=== PATIENT | male | born 1955 | race Hispanic/Latino ===

== ENCOUNTER 2021-05-30 03:04 | Inpatient (IN) | payer OTHER, MEDICARE ==
[2021-05-30] VITALS (10 sets, daily range): BP systolic 128–163; BP diastolic 73–99
[~2021-05-30] VITALS: Ht 175.3 cm; Wt 89.3 kg
[2021-05-30 04:04] LABS: BASOPHILS % (AUTO) 0.8 % (0.0-5.0); EOSINOPHILS % (AUTO) 4.5 % (0.0-8.0); HEMATOCRIT 41.6 % (42-54); LYMPHOCYTES % (AUTO) 35.8 % (21.0-51.0); MEAN CORPUSCULAR HEMOGLOBIN 32.6 pg (27.0-33.0); MEAN CORPUSCULAR HGB CONC 35.1 g/dL (32.0-36.0); MEAN CORPUSCULAR VOLUME 92.9 fL (79-99); MONOCYTES % (AUTO) 8.1 % (3.0-13.0); NEUTROPHILS % (AUTO) 50.7 % (40.0-77.0); PLATELET COUNT (AUTO) 207 K/uL (130-400); RED BLOOD CELL COUNT(AUTO) 4.48 MIL/uL (4.50-6.20); WHITE BLOOD COUNT (AUTO) 7.4 K/uL (4.8-10.8)
[2021-05-30 04:16] LABS: CREATININE 0.9 mg/dL (0.5-1.5); POTASSIUM 4.2 mmol/L (3.5-5.1)
[2021-05-30 04:22] LABS: ALBUMIN 3.7 g/dL (3.5-5.0); BILIRUBIN,TOTAL 1.1 mg/dL (0.2-1.0); MAGNESIUM 2.1 mg/dL (1.80-2.40); TOTAL PROTEIN, SERUM 7.8 g/dL (6.0-8.3)
[2021-05-30] MEDS ORDERED: 0.9%NACL 1000ML 1,000 ML IV ONE (05:00)
[2021-05-30] MEDS ORDERED: ACETAMINOPHEN 325 MG TAB PO PRN ×2 (10:30)
[2021-05-30] MEDS ORDERED: ONDANSETRON 4MG INJ IV PRN (10:30)
[2021-05-30 10:31] LABS: CHOLESTEROL 206 mg/dL (<200); HDL CHOLESTEROL 54 mg/dL (29-71); LDL DIRECT 135 mg/dL (0-99); TRIGLYCERIDES 96 mg/dL (30-200)
[2021-05-30 10:43] LABS: HEMOGLOBIN A1C 5.8 % (4.0-6.0)
[2021-05-30] MEDS ORDERED: LEVETIRACETAM 1,000 MG in 0.9%NACL 100ML 100 ML IV ONE (11:00)
[2021-05-30] MEDS: 0.9%NACL 1000ML 1,000 ML IV SCH (11:25)
[2021-05-30] MEDS ORDERED: GADOTERATE MEGLUMINE 10 MMOL/20 ML VIAL IV ONE (11:27)
[2021-05-30] MEDS: THIAMINE HCL 100 MG/ML 2ML VIAL IV SCH (12:04)
[2021-05-30] MEDS: FOLIC ACID 1 MG TABLET PO SCH (12:05)
[2021-05-30 13:33] LABS: ALCOHOL, BLOOD < 3 mg/dL (0-10); CREATINE KINASE, TOTAL 123 U/L (21-232)
[2021-05-30] MEDS ORDERED: LORAZEPAM 2 MG/ML 1 ML VIAL IVP PRN (15:00)
[2021-05-30] MEDS ORDERED: PHARMACY COMMUNICATION MISC PRN (15:00)
[2021-05-30] MEDS ORDERED: DiphenhydrAMINE HCL 50 MG/ML VIAL IV ONE (19:30)
[2021-05-30] MEDS ORDERED: IOHEXOL-350 75 ML VIAL IV ONE (20:15)
[2021-05-30] MEDS: CHLORDIAZEPOXIDE HCL 25 MG CAP PO PRN (21:32)
[2021-05-30] MEDS: LEVETIRACETAM 250 MG TABLET PO SCH (21:32)
[2021-05-30] MEDS: FAMOTIDINE 20MG VIAL IV SCH (21:33)
[2021-05-31] VITALS: BP 145/73
[2021-05-31 04:00] VITALS: BP 147/76
[2021-05-31 04:37] VITALS: BP 142/61
[2021-05-31 05:22] LABS: BASOPHILS % (AUTO) 0.9 % (0.0-5.0); EOSINOPHILS % (AUTO) 5.1 % (0.0-8.0); HEMATOCRIT 40.6 % (42-54); LYMPHOCYTES % (AUTO) 31.2 % (21.0-51.0); MEAN CORPUSCULAR HEMOGLOBIN 32.6 pg (27.0-33.0); MEAN CORPUSCULAR HGB CONC 34.5 g/dL (32.0-36.0); MEAN CORPUSCULAR VOLUME 94.4 fL (79-99); MONOCYTES % (AUTO) 8.4 % (3.0-13.0); PLATELET COUNT (AUTO) 193 K/uL (130-400); RED CELL DISTRIBUTION WIDTH 12.9 % (11.0-15.5); WHITE BLOOD COUNT (AUTO) 7.6 K/uL (4.8-10.8)
[2021-05-31 05:42] LABS: ALBUMIN 3.6 g/dL (3.5-5.0); BILIRUBIN,TOTAL 1.2 mg/dL (0.2-1.0); CREATININE 0.9 mg/dL (0.5-1.5); POTASSIUM 4.4 mmol/L (3.5-5.1); TOTAL PROTEIN, SERUM 7.3 g/dL (6.0-8.3)
[2021-05-31] MEDS: 0.9%NACL 1000ML 1,000 ML IV SCH (06:30)
[2021-05-31 08:00] VITALS: BP 111/75
[2021-05-31] MEDS: FOLIC ACID 1 MG TABLET PO SCH (10:59)
[2021-05-31] MEDS: LEVETIRACETAM 250 MG TABLET PO SCH ×2 (10:59→22:14)
[2021-05-31] MEDS: FAMOTIDINE 20MG VIAL IV SCH ×2 (10:59→22:14)
[2021-05-31] MEDS: THIAMINE HCL 100 MG/ML 2ML VIAL IV SCH (11:00)
[2021-05-31] MEDS: CHLORDIAZEPOXIDE HCL 25 MG CAP PO PRN ×2 (11:17→17:44)
[2021-05-31 12:00] VITALS: BP 122/71
[2021-05-31] MEDS ORDERED: CHLORDIAZEPOXIDE HCL 25 MG CAP PO ONE (15:00)
[2021-05-31 20:00] VITALS: BP 137/85
[2021-05-31] MEDS ORDERED: ATORVASTATIN 40 MG TABLET PO SCH (21:00)
[2021-06-01] VITALS: BP 137/98
[2021-06-01 04:00] VITALS: BP 102/59
[2021-06-01 08:00] VITALS: BP 98/60
[2021-06-01] MEDS: FAMOTIDINE 20MG VIAL IV SCH (09:00)
[2021-06-01] MEDS: THIAMINE HCL 100 MG/ML 2ML VIAL IV SCH (09:00)
[2021-06-01] MEDS ORDERED: LEVE750T10 PO (11:13)
[2021-06-01] MEDS ORDERED: FOLI1 PO (11:13)
[2021-06-01] MEDS ORDERED: ATOR40TA69 PO (11:13)
[2021-06-01] MEDS ORDERED: THIA100T91 PO (11:13)
[2021-06-01] MEDS: LEVETIRACETAM 250 MG TABLET PO SCH (11:33)
[2021-06-01] MEDS: FOLIC ACID 1 MG TABLET PO SCH (11:33)
[2021-06-01] MEDS: CHLORDIAZEPOXIDE HCL 25 MG CAP PO PRN (11:33)
[2021-06-01 15:12] LABS: HEPATITIS A ANTIBODY IGM Negative (Negative); HEPATITIS B CORE IGM Negative (Negative); HEPATITIS Bs ANTIGEN SCREEN P Negative (Negative)
[2021-06-02] MEDS ORDERED: THIAMINE HCL 100 MG TABLET PO SCH (09:00)
== END 2021-06-01 13:15 | disposition home or self-care (01) | DRG 101 ==
LOC: EDH 03:33 → EDHIP 10:11 → 3DH 15:49
PROVIDERS: ADMIT Internal Medicine; ATTEND Internal Medicine
DX: G40.89 Other seizures (principal); E11.9 Type 2 diabetes mellitus without complications; I10 Essential (primary) hypertension; S00.81XA Abrasion of other part of head, initial encounter; X58.XXXA Exposure to other specified factors, initial encounter; L98.499 Non-pressure chronic ulcer of skin of other sites with unspecified severity; Z60.2 Problems related to living alone; Z82.0 Family history of epilepsy and other diseases of the nervous system; Z86.73 Personal history of transient ischemic attack (TIA), and cerebral infarction without residual deficits; Z91.14 Patient's other noncompliance with medication regimen; Y93.89 Activity, other specified; Y92.89 Other specified places as the place of occurrence of the external cause; Y99.8 Other external cause status
CPT/HCPCS: 36415; 70450; 71045; 80053; 80061; 80074; 82550; 83036; 83735; 84484; 85025; 85651; 93005; G0378; J1200; J1953; J2060; J3411; J3490; J7030; Q9967

== ENCOUNTER 2021-11-11 11:19 | Emergency (ER) | payer MEDICARE, MEDICAID ==
[~2021-11-11] VITALS: Ht 172.7 cm; Wt 92.5 kg
[~2021-11-11 11:19] MED LIST: ATOR40TA69 PO; FOLI1 PO; LEVE750T10 PO; THIA100T91 PO
[2021-11-11 11:31] VITALS: BP 140/93
[2021-11-11 11:55] LABS: BASOPHILS % (AUTO) 0.5 % (0.0-5.0); EOSINOPHILS % (AUTO) 2.1 % (0.0-8.0); HEMATOCRIT 44.6 % (42-54); MEAN CORPUSCULAR HEMOGLOBIN 33.1 pg (27.0-33.0); MEAN CORPUSCULAR HGB CONC 34.8 g/dL (32.0-36.0); MEAN CORPUSCULAR VOLUME 95.3 fL (79-99); MONOCYTES % (AUTO) 10.9 % (3.0-13.0); NEUTROPHILS % (AUTO) 64.2 % (40.0-77.0); PLATELET COUNT (AUTO) 200 K/uL (130-400); RED BLOOD CELL COUNT(AUTO) 4.68 MIL/uL (4.50-6.20); RED CELL DISTRIBUTION WIDTH 12.3 % (11.0-15.5); WHITE BLOOD COUNT (AUTO) 9.9 K/uL (4.8-10.8)
[2021-11-11 12:02] LABS: POTASSIUM 3.9 mmol/L (3.5-5.1)
[2021-11-11] MEDS ORDERED: CEPH500B PO (12:59)
[2021-11-11] MEDS ORDERED: CEFAZOLIN SODIUM 1 GM VIAL IVP SCH (13:00)
== END 2021-11-11 13:57 | disposition home or self-care (01) ==
LOC: EDH 11:19
DX: L03.113 Cellulitis of right upper limb (principal); E11.9 Type 2 diabetes mellitus without complications; I10 Essential (primary) hypertension; Z79.899 Other long term (current) drug therapy
CPT/HCPCS: 36415; 73080; 80048; 85025; 93971; 96374; 99285; J0690

== ENCOUNTER 2021-11-25 12:24 | Emergency (ER) | payer MEDICARE, MEDICAID ==
[~2021-11-25] VITALS: Ht 172.7 cm; Wt 99.8 kg
[~2021-11-25 12:24] MED LIST changes: +CEPH500B PO
[2021-11-25] MEDS ORDERED: IOHEXOL 350 MG/ML 100ML INFUS..BTL IV ONE (13:28)
[2021-11-25 13:37] LABS: BASOPHILS % (AUTO) 0.5 % (0.0-5.0); EOSINOPHILS % (AUTO) 0.8 % (0.0-8.0); LYMPHOCYTES % (AUTO) 23.1 % (21.0-51.0); MEAN CORPUSCULAR HEMOGLOBIN 32.1 pg (27.0-33.0); MEAN CORPUSCULAR HGB CONC 34.4 g/dL (32.0-36.0); MEAN CORPUSCULAR VOLUME 93.4 fL (79-99); PLATELET COUNT (AUTO) 338 K/uL (130-400); RED BLOOD CELL COUNT(AUTO) 4.39 MIL/uL (4.50-6.20); RED CELL DISTRIBUTION WIDTH 12.5 % (11.0-15.5); WHITE BLOOD COUNT (AUTO) 8.4 K/uL (4.8-10.8)
[2021-11-25 13:46] LABS: CREATININE 0.9 mg/dL (0.5-1.5); POTASSIUM 4.4 mmol/L (3.5-5.1)
[2021-11-25 13:52] LABS: ALBUMIN 3.6 g/dL (3.5-5.0); BILIRUBIN,TOTAL 0.5 mg/dL (0.2-1.0); TOTAL PROTEIN, SERUM 7.7 g/dL (6.0-8.3)
[2021-11-25 14:08] LABS: APPEARANCE,URINE Clear (CLEAR); BILIRUBIN,URINE Negative (NEGATIVE); COLOR,URINE Yellow (YELLOW); GLUCOSE, URINE (UA) Negative (NEGATIVE); KETONES,URINE Negative (NEGATIVE); LEUKOCYTE ESTERASE ,URINE Negative (NEGATIVE); NITRATE,URINE Negative (NEGATIVE); OCCULT BLOOD,URINE Negative (NEGATIVE); PH,URINE 5.5 (5.0-8.0); PROTEIN,URINE Negative (NEGATIVE); UROBILINOGEN,URINE 0.2 mg/dL (0.2-1.0)
[2021-11-25 14:12] LABS: B-TYPE NATRIURETIC PEPTIDE 44 pg/mL (0-100)
[2021-11-25 14:16] LABS: AMPHET/METH SCREEN,URINE NEGATIVE (NEGATIVE); BARBITURATE SCREEN, URINE NEGATIVE (NEGATIVE); BENZODIAZEPINES SCREEN,URINE NEGATIVE (NEGATIVE); CANNABINOID SCREEN,URINE NEGATIVE (NEGATIVE); COCAINE SCREEN,URINE NEGATIVE (NEGATIVE); OPIATE SCREEN,URINE NEGATIVE (NEGATIVE); PHENCYCLIDINE SCREEN,URINE NEGATIVE (NEGATIVE)
[2021-11-25] MEDS ORDERED: ASPIRIN 81MG CHEW TAB PO ONE (16:00)
[2021-11-25 17:10] VITALS: BP 155/91
== END 2021-11-25 17:14 | disposition home or self-care (01) ==
LOC: EDH 12:24
DX: F43.9 Reaction to severe stress, unspecified (principal); R20.0 Anesthesia of skin; Z86.73 Personal history of transient ischemic attack (TIA), and cerebral infarction without residual deficits; Z79.899 Other long term (current) drug therapy; Z79.82 Long term (current) use of aspirin
CPT/HCPCS: 36415; 70450; 70496; 70498; 71045; 80053; 80305; 81003; 83880; 84484; 85025; 93005; 99285; Q9967